=== PATIENT | female | born 1980 | race Caucasian/White ===

== ENCOUNTER 2018-11-06 09:21 | Emergency (ER) | payer OTHER ==
[~2018-11-06] VITALS: Ht 167.6 cm; Wt 107.5 kg
[2018-11-06 11:54] VITALS: BP 124/80
== END 2018-11-06 11:55 | disposition home or self-care (01) ==
LOC: M.ERS 09:21
DX: G43.909 Migraine, unspecified, not intractable, without status migrainosus (principal); Z90.710 Acquired absence of both cervix and uterus

== ENCOUNTER 2018-11-23 08:05 | Emergency (ER) | payer OTHER ==
[~2018-11-23] VITALS: Ht 167.6 cm; Wt 107.5 kg
[2018-11-23 08:55] LABS: URINE BILIRUBIN NEGATIVE (Negative); URINE BLOOD NEGATIVE (Negative); URINE CLARITY CLEAR; URINE COLOR YELLOW; URINE GLUCOSE-RANDOM NEGATIVE (Negative); URINE KETONES NEGATIVE (Negative); URINE NITRITE-REFLEX NEGATIVE (Negative); URINE PROTEIN NEGATIVE (Negative); URINE SPECIFIC GRAVITY 1.025 (1.005-1.030); URINE UROBILINOGEN 0.2 E.U./dl (0.2-1.0)
[2018-11-23 08:58] LABS: URINE LEUKOCYTES-REFLEX 2+ (Negative)
[2018-11-23 09:06] LABS: ABSOLUTE EOSINOPHILS 0.1 thou/uL (0.0-0.7); ABSOLUTE MONOCYTES 0.4 thou/uL (0.0-1.2); ABSOLUTE NEUTROPHILS 3.9 thou/uL (1.6-8.1); BASOPHILS 0.6 %; EOSINOPHILS 1.2 %; HEMATOCRIT 41.3 % (37.0-47.0); HEMOGLOBIN 14.1 gm/dL (12.0-15.0); LYMPHOCYTES 31.2 %; MCHC 34.1 g/dL (28.0-37.0); MONOCYTES 6.6 %; MPV 8.5 fl. (7.2-11.1); NUCLEATED RBCS 0 /100WBC; PLATELET COUNT* 203 thou/uL (150-400); POLYS 60.4 %; RDW-CV 13.4 % (10.5-14.5); WBC 6.5 thou/uL (4.0-11.0)
[2018-11-23 09:13] LABS: SQUAMOUS >10 Many /LPF (0-3); URINE WBC-REFLEX 6-15 Few /HPF (0-5)
[2018-11-23 09:15] LABS: URINE RBC 0-2 Rare /HPF (0-2)
[2018-11-23 09:16] LABS: CRYSTALS None Seen /LPF (None Seen); HYALINE CASTS 0-3 Few /LPF (None Seen); MUCUS 4-6 Moderate strn/LPF (None Seen)
[2018-11-23 09:18] LABS: CALCIUM 8.7 mg/dL (8.5-10.1); CREATININE 0.8 mg/dL (0.6-1.3); POTASSIUM 3.8 mmol/L (3.5-5.1)
[2018-11-23 09:22] LABS: ALBUMIN 3.2 g/dL (3.4-5.0); TOTAL BILIRUBIN 0.2 mg/dL (<0.1-1.0); TOTAL PROTEIN 6.5 g/dL (6.4-8.2)
[2018-11-23 11:26] VITALS: BP 122/83
[2018-11-23] MEDS ORDERED: NORCO 5-325 TA1 EACH PO (11:29)
[2018-11-23] MEDS ORDERED: IBUPROFEN 800800 MG PO (11:29)
== END 2018-11-23 11:31 | disposition home or self-care (01) ==
LOC: M.ERS 08:05
PROVIDERS: Personal Emergency Response Attendant
DX: K63.89 Other specified diseases of intestine (principal); G43.909 Migraine, unspecified, not intractable, without status migrainosus; Z88.2 Allergy status to sulfonamides; Z90.710 Acquired absence of both cervix and uterus; Z90.49 Acquired absence of other specified parts of digestive tract